=== PATIENT | male | born 1990 ===

== ENCOUNTER 2018-08-30 23:09 | Emergency (ER) | payer SELFPAY ==
[2018-08-30 23:19] VITALS: BP 182/93; PULSE 88; RESP 18; TEMP 98; O2SAT 99
[2018-08-30] MEDS ORDERED: Povidone Iodine Topical 10% Sol ONE (23:35)
[2018-08-30] MEDS ORDERED: ceFAZolin 1 GM in Sodium Chloride 0.9% 100 ML IVPB ONE (23:37)
[2018-08-30] MEDS ORDERED: Tdap Vaccine 0.5 ml Vial (10-64 yrs) IM ONE (23:37)
[2018-08-30] MEDS ORDERED: Oxycodone/Acetaminophen 5/325 mg Tab PO STA (23:37)
[2018-08-31] MEDS ORDERED: Lidocaine 1% Inj (20ml) ONE (00:28)
--- NOTE | 2018-08-31 01:31 | ED PDOC ---
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); there is a 2cm vertical laceration; the nail and nailbed are intact and are unaffected) Past Medical History Reviewed: Historical Data, Nursing Documentation, Vital Signs Vital Signs: Last Vital Signs Temp 98 F 08/30/18 23:16 Pulse 88 08/30/18 23:16 Resp 18 08/30/18 23:16 BP 182/93 H 08/30/18 23:16 Pulse Ox 99 08/30/18 23:16 - Family History Family History: States: Unknown Family Hx - Home Medications Home Medications: Ambulatory Orders Medication Instructions Recorded Cephalexin [cephalexin] 500 mg PO QID #40 cap 08/31/18 - Allergies Allergies/Adverse Reactions: Allergies Allergy/AdvReac Type Severity Reaction Status Date / Time No Known Allergies Allergy Verified 08/30/18 23:16 Review of Systems Musculoskeletal: Positive for: Hand Pain Skin: Positive for: Bruising Physical Exam - Reviewed Nursing Documentation Reviewed: Yes Vital Signs Reviewed: Yes - Physical Exam Appears: Positive for: Well, Non-toxic, No Acute Distress. Negative for: Uncomfortable Head Exam: Positive for: ATRAUMATIC, NORMAL INSPECTION Skin: Positive for: Normal Color (see notes for laceration detail) Cardiovascular/Chest: Positive for: Regular Rate, Rhythm Respiratory: Positive for: Normal Breath Sounds Extremity: Positive for: Tenderness, Capillary Refill, Other (HAND: (+) Tenderness over DIP of first digit of left hand, (+) swelling over the left thumb distal phalynx. (-) laxity of ulnar or radial collateral ligaments. (-) snuff-box tenderness. Distal sensation and capillary filling normal and there is full two point discrimination and cap refill less than 2 seconds. Other digits, hand and wrist: (-) tenderness ). Negative for: Normal ROM, Deformity, Swelling - ECG O2 Sat by Pulse Oximetry: 99 Medical Decision Making Medical Decision Making: wet read by me of xray of left first digit: non displaced fx of Distal phalynx Procedures - Laceration/Wound Repair Left Distal Wound's Depth, Shape: superficial Wound Explored: clean Betadine Prep?: Yes Anesthesia: 1% Lidocaine Volume Anesthetic (ccs): 4 Wound Debrided: minimal Wound Repaired With: Sutures Suture Size/Type: 3:0, proline Number of Sutures: 4 (interrupted) Wound Complexity: Simple Sterile Dressing Applied?: Yes Splint Applied?: Yes Sling Applied?: No Disposition - Clinical Impression Clinical Impression: Fracture of thumb, left, closed, Laceration of finger of left hand - Patient ED Disposition Is Patient to be Admitted: No Doctor Will See Patient In The: Office Counseled Patient/Family Regarding: Diagnosis, Need For Followup, Rx Given - Disposition [facility]errals: [facility] Disposition: Routine/Home Disposition Time: 01:38 Condition: STABLE Additional Instructions: Remove sutures after seven days Keep wound clean and dry Clean with mild soap and water Return to ED if infection or red streaks appear at site of wound Prescriptions: Cephalexin [cephalexin] 500 mg PO QID #40 cap Instructions: Finger Fracture, Finger Fracture (DC), Laceration Repair, Laceration Repair With Stitches (DC)
--- NOTE | 2018-08-31 10:29 | RAD ---
Date of service: 08/30/2018 PROCEDURE: Left Thumb radiographs. HISTORY: r/o fx COMPARISON: None. TECHNIQUE: AP radiograph of the left hand, as well as spot oblique and lateral images of thumb were obtained. FINDINGS: LEFT THUMB: Relatively nondisplaced fracture of the 1st distal phalanx. JOINTS: Normal. SOFT TISSUES: Normal. OTHER FINDINGS: None. IMPRESSION: Nondisplaced fracture of the 1st distal phalanx.
== END 2018-08-31 01:45 | disposition home or self-care (01) ==
LOC: H.ER 23:09
DX: S61.012A Laceration without foreign body of left thumb without damage to nail, initial encounter (principal); S62.502A Fracture of unspecified phalanx of left thumb, initial encounter for closed fracture; W22.8XXA Striking against or struck by other objects, initial encounter; Y99.0 Civilian activity done for income or pay
CPT/HCPCS: 12001; 73140; 90471; 90715; 99285; J0690